=== PATIENT | female | born 1970 | race Hispanic/Latino ===

== ENCOUNTER 2018-11-13 08:36 | Outpatient (CLI) | payer OTHER ==
--- NOTE | 2018-11-13 12:09 | ULT ---
ULTRASOUND ABDOMEN COMPLETE: HISTORY: A 48-year-old female with right lower quadrant abdominal pain. FINDINGS: The gallbladder has normal wall thickness and has no evidence of gallstones or sludge. The hepatic e chogenicity is normal. The kidneys have normal echogenicity, and there is no hydronephrosis. There is no splenomegaly. There is no abdominal aortic aneurysm. No free fluid is identified. The inferi or vena cava is visualized. The pancreas is visualized, although ultrasound is relatively insensitiv e for pancreatic pathology compared to CT and MRI. There is no biliary dilation. The common duct ca liber is 2 mm. IMPRESSION: 1. Normal abdominal ultrasound. 2. For right lower quadrant pain, CT abdomen and pelvis with contrast is recommended (preferably wit h oral contrast if appendicitis is suspected). [email or web address] POS: [facility]
--- NOTE | 2018-11-13 12:36 | ULT ---
PELVIC ULTRASOUND: HISTORY: Right lower quadrant pain x2 months. COMPARISON: None. TECHNIQUE: Transabdominal and endovaginal imaging of the pelvis is performed. The ovaries are interrogated with middleton-scale, color-flow, and Doppler imaging with spectral wave-form analysis. FINDINGS: The uterus is identified, measuring 9.4 x 5 x 6 cm. There is mild heterogeneity of the myometrium wi thout discrete myometrial mass. Limited evaluation of the endometrium. The visualized endometrium m easures approximately 2 cm. In the region of pain in the right adnexa, no masses or fluid. The right ovary has a normal echotexture, measuring 1.8 x 1.3 x 2.1 cm. In the left adnexa, there are no masses or fluid. The left ovary measures 0.9 x 1.6 x 1 cm. OVARIAN DOPPLER: There is vascular flow to both ovaries. IMPRESSION: Unremarkable pelvic ultrasound. POS: [facility]
== END 2018-11-13 08:37 | disposition home or self-care (01) ==
LOC: ULT 08:36
PROVIDERS: ATTEND Family Medicine
DX: R10.31 Right lower quadrant pain (principal)
CPT/HCPCS: 76700; 76856

== ENCOUNTER 2021-07-29 08:25 | Outpatient (CLI) | payer OTHER | END 2021-07-29 08:26 | disposition home or self-care (01) | LOC: BICULT 08:25 | PROVIDERS: ATTEND Family Medicine | DX: R10.11 Right upper quadrant pain (principal); R11.2 Nausea with vomiting, unspecified; K76.0 Fatty (change of) liver, not elsewhere classified | CPT/HCPCS: 76700 ==

== ENCOUNTER 2021-10-08 13:20 | Outpatient (CLI) | payer OTHER | END 2021-10-08 13:21 | disposition home or self-care (01) | LOC: BICULT 13:20 | PROVIDERS: ATTEND Family Medicine | DX: R74.8 Abnormal levels of other serum enzymes (principal); K76.0 Fatty (change of) liver, not elsewhere classified | CPT/HCPCS: 76705 ==